=== PATIENT | male | born 1980 | race Caucasian/White ===

== ENCOUNTER 2016-11-03 19:45 | Emergency (ER) | payer BC ==
[2016-11-03] MEDS ORDERED: Lidocaine 1% 20 ML MDV INJECT ONE (19:56)
[2016-11-03 20:00] VITALS: BP 146/93
--- NOTE | 2016-11-03 20:00 | EDM.PDOC ---
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 Past medical history: As per history of present illness and as reviewed below otherwise noncontributory. Surgical history: As per history of present illness and as reviewed below otherwise noncontributory. Social history: No reported history of drug or alcohol abuse. Family history: As per history of present illness and as reviewed below otherwise noncontributory. Physical exam: HEENT: Atraumatic, normocephalic, pupils reactive, negative for conjunctival pallor or scleral icterus, mucous membranes moist, throat clear, neck supple, nontender, trachea midline. Lungs: Clear to auscultation, breath sounds equal bilaterally, chest nontender. Heart: S1S2, regular, negative for clicks, rubs, or JVD. Abdomen: Soft, nondistended, nontender. Negative for masses or hepatosplenomegaly. Negative for costovertebral tenderness. Pelvis: Stable nontender. Genitourinary: Deferred. Rectal: Deferred. Extremities: Patient has proximally 3 cm moderate depth laceration his left thigh is good hemostasis EMS neurovascular is unremarkable Neuro: Awake, alert, oriented. Cranial nerves II through XII unremarkable. Cerebellum unremarkable. Motor and sensory unremarkable throughout. Exam nonfocal. Diagnostics: None Therapeutics: Tetanus updated wound was anesthetized 1% lidocaine without epinephrine irrigated with copious amounts 0.9 normal saline prepped and draped in sterile manner patient 3 cm laceration was closed with 4-0 nylon interrupted suture bacitracin was applied Impression: #1 laceration left thigh Definitive disposition and diagnosis as appropriate pending reevaluation and review of above. - Related Data Allergies Allergy/AdvReac Type Severity Reaction Status Date / Time No Known Allergies Allergy Verified 07/10/14 20:43 Home Meds: Home Meds Lisinopril [Prinivil] 10 mg PO DAILY 07/10/14 [History] Social & Family History - Tobacco Use Smoking Status *Q: Current Every Day Smoker Years of Tobacco use: 10 - Alcohol Use Days Per Week of Alcohol Use: 7 Number of Drinks Per Day: 3 Total Drinks Per Week: 21 - Recreational Drug Use Recreational Drug Use: No ED ROS GENERAL - Review of Systems Review Of Systems: ROS reveals no pertinent complaints other than HPI. ED EXAM, SKIN/RASH Exam: See Below (See dictation) Course - Orders/Labs/Meds Orders: Active Orders 24 hr Category Date Time Status Lidocaine 1% [Xylocaine 1%] Med 11/03/16 19:56 Once 20 ml INJECT ONETIME ONE Departure - Departure Time of Disposition: 19:59 Disposition: Home, Self-Care 01 Condition: Good Clinical Impression: Laceration - Discharge Information Referrals: PCP,None [Primary Care Provider] - Additional Instructions: The following information is given to patients seen in the emergency department who are being discharged to home. This information is to outline your options for follow-up care. We provide all patients seen in our emergency department with a follow-up referral. The need for follow-up, as well as the timing and circumstances, are variable depending upon the specifics of your emergency department visit. If you don't have a primary care physician on staff, we will provide you with a referral. We always advise you to contact your personal physician following an emergency department visit to inform them of the circumstance of the visit and for follow-up with them and/or the need for any referrals to a consulting specialist. The emergency department will also refer you to a specialist when appropriate. This referral assures that you have the opportunity for followup care with a specialist. All of these measure are taken in an effort to provide you with optimal care, which includes your followup. Under all circumstances we always encourage you to contact your private physician who remains a resource for coordinating your care. When calling for followup care, please make the office aware that this follow-up is from your recent emergency room visit. If for any reason you are refused follow-up, please contact the [facility] emergency department at and asked to speak to the emergency department charge nurse. Primary medical doctor 1-2 days suture removal 10-14 days return as needed as discussed - My Orders Last 24 Hours: My Active Orders 11/03/16 19:56 Lidocaine 1% [Xylocaine 1%] 20 ml INJECT ONETIME ONE - Assessment/Plan Last 24 Hours: My Active Orders 11/03/16 19:56 Lidocaine 1% [Xylocaine 1%] 20 ml INJECT ONETIME ONE
[2016-11-03] MEDS ORDERED: Bacitracin Oint 1 GM U/D Packet TOP ONE (20:08)
[2016-11-03] MEDS ORDERED: Diphtheria,Pertussis(Acell),Tetanus Vaccine 0.5 ML Syringe IM ONE (20:18)
== END 2016-11-03 20:38 | disposition home or self-care (01) ==
LOC: MW.ED 19:45
DX: S71.112A Laceration without foreign body, left thigh, initial encounter (principal); F17.210 Nicotine dependence, cigarettes, uncomplicated; W26.0XXA Contact with knife, initial encounter
CPT/HCPCS: 12002; 90715; 99282

== ENCOUNTER 2022-12-04 21:27 | Day surgery (SDC) | payer BC ==
[2022-12-04 23:35] LABS: BASOPHILS ABSOLUTE AUTO 0.04 K/uL (0.00-0.20); BASOPHILS PERCENT AUTO 0.2 % (0.0-1.0); EOSINOPHILS ABSOLUTE AUTO 0.02 K/uL (0.00-0.45); EOSINOPHILS PERCENT AUTO 0.1 % (0.0-6.0); HEMATOCRIT 38.5 % (42.0-52.0); HEMOGLOBIN 14.2 g/dL (14.0-18.0); IMMATURE GRAN ABSOLUTE AUTO 0.08 K/uL (0.00-0.05); IMMATURE GRAN PERCENT AUTO 0.4 % (0.0-0.4); LYMPHOCYTES PERCENT AUTO 6.7 % (24.0-44.0); MEAN CORPUSCULAR HEMOGLOBIN 31.1 pg (28.0-32.0); MEAN CORPUSCULAR HGB CONC 36.9 g/dL (32.0-36.0); MEAN CORPUSCULAR VOLUME 84.4 fL (83.0-99.0); MEAN PLATELET VOLUME 8.8 fL (9.4-12.4); MONOCYTES ABSOLUTE AUTO 1.13 K/uL (0.00-0.80); MONOCYTES PERCENT AUTO 5.4 % (0.0-8.0); NEUTROPHILS PERCENT AUTO 87.2 % (41.0-71.0); PLATELET COUNT,PLT 288 K/uL (150-400); RED BLOOD CELL COUNT 4.56 M/uL (4.52-5.90); WHITE BLOOD CELL COUNT,WBC 20.97 K/uL (3.9-11.3)
[2022-12-04 23:57] LABS: A/G RATIO 1.3 (0.9-1.6); ALBUMIN 4.1 g/dL (3.4-5.0); BILIRUBIN TOTAL 0.9 mg/dL (0.2-1.0); CALCIUM 8.5 mg/dL (8.5-10.1); CARBON DIOXIDE,CO2 25.5 mmol/L (21.0-32.0); CREATININE 0.9 mg/dL (0.8-1.3); EST CRCL DRUG DOSING (CG) 113.88 mL/min; POTASSIUM,K 3.7 mmol/L (3.5-5.1); PROTEIN TOTAL,TP 7.2 g/dL (6.4-8.2)
[2022-12-05] MEDS ORDERED: Iopamidol 755 MG/ML 500 ML Multipack Bottle IVPUSH ONE (00:22)
[2022-12-05] MEDS ORDERED: metroNIDAZOLE/Normal Saline 500 MG in Premix Bag 1 BAG IV ONE ×3 (01:18→12:30)
[2022-12-05] MEDS ORDERED: cefTRIAXone 1 GM in Sodium Chloride 0.9% 50 ML IV ONE (01:18)
[2022-12-05] MEDS ORDERED: Morphine 2 MG/ML SYRINGE IVPUSH PRN ×2 (01:23→08:36)
[2022-12-05] MEDS ORDERED: Lactated Ringers 1,000 ML IV SCH ×2 (01:30→12:15)
[2022-12-05 01:39] LABS: APPEARANCE,URINE CLEAR; BILIRUBIN,URINE NEGATIVE (NEGATIVE); COLOR,URINE YELLOW; GLUCOSE,URINE NEGATIVE (NEGATIVE); KETONES,URINE NEGATIVE (NEGATIVE); LEUKOCYTE ESTERASE,URINE NEGATIVE (NEGATIVE); NITRITE,URINE NEGATIVE (NEGATIVE); OCCULT BLOOD,URINE NEGATIVE (NEGATIVE); PH,URINE 6.5 (5.0-8.0); PROTEIN,URINE NEGATIVE (NEGATIVE); UROBILINOGEN,URINE 0.2 EU/dL (<2.0)
[2022-12-05] MEDS ORDERED: Ondansetron 4 MG/2 ML SDV IVPUSH ONE (01:54)
[2022-12-05] MEDS ORDERED: EPINEPHrine 1 MG/1 ML Amp ONE (09:41)
[2022-12-05] MEDS ORDERED: Ropivacaine 0.5% 5 MG/ML 30 ML SDV ONE (09:41)
[2022-12-05] MEDS ORDERED: Bupivacaine 0.25% 30 ML SDV ONE (09:41)
[2022-12-05] MEDS ORDERED: Lidocaine 2% 5 ML SDV ONE (09:46)
[2022-12-05] MEDS ORDERED: Sugammadex Sodium 200 MG/2 ML VIAL ONE (09:46)
[2022-12-05] MEDS ORDERED: Ketorolac 30 MG/ML SDV ONE (09:46)
[2022-12-05] MEDS ORDERED: fentaNYL 100 MCG/2 ML SDV ONE (09:46)
[2022-12-05] MEDS ORDERED: Propofol 200 MG/20 ML SDV ONE (09:46)
[2022-12-05] MEDS ORDERED: Rocuronium Bromide 50 MG/5 ML Syringe ONE (09:46)
[2022-12-05] MEDS ORDERED: Dexamethasone 4 MG/ML 5 ML MDV ONE (09:46)
[2022-12-05] MEDS ORDERED: Ondansetron 4 MG/2 ML SDV ONE (09:46)
[2022-12-05] MEDS ORDERED: Bupivacaine 0.5% 30 ML SDV ONE (10:31)
[2022-12-05] MEDS ORDERED: ceFAZolin 1 GM Vial ONE (10:32)
[2022-12-05] MEDS ORDERED: HYDROmorphone 2 MG/ML Syringe ONE (11:48)
[2022-12-05] MEDS ORDERED: Acetaminophen/HYDROcodone 325-5 MG Tab PO PRN (12:03)
[2022-12-05 19:32] VITALS: BP 130/81; PULSE 71
== END 2022-12-05 18:30 | disposition home or self-care (01) ==
LOC: MW.ED 21:27 → MW.SDS 12-05 01:22 → MW.MS 12-05 01:55 → MW.SDS 12-05 18:30
PROVIDERS: ATTEND Surgery
DX: K35.30 Acute appendicitis with localized peritonitis, without perforation or gangrene (principal); I10 Essential (primary) hypertension; E78.00 Pure hypercholesterolemia, unspecified; Z79.899 Other long term (current) drug therapy; Z98.890 Other specified postprocedural states
CPT/HCPCS: 36415; 44970; 74177; 80053; 81003; 82947; 83690; 85025; 96365; 96367; 96375; 99285; J0171; J0690; J0696; J1100; J1170; J1885; J2270; J2405; J2704; J2795; J3010; J3490; J7030; J7120; Q9967